=== PATIENT | male | born 1955 | race Caucasian/White ===

== ENCOUNTER → 2016-08-24 | Outpatient (CLI) | payer OTHER | LOC: MRI 09:12 → CAT 09:12 → MRI 10:11 | DX: R91.1 Solitary pulmonary nodule (principal) ==

== ENCOUNTER → 2017-01-29 | Outpatient (CLI) | payer OTHER | LOC: CAT 11:20 | DX: I25.10 Atherosclerotic heart disease of native coronary artery without angina pectoris (principal); R91.1 Solitary pulmonary nodule; R91.8 Other nonspecific abnormal finding of lung field ==

== ENCOUNTER → 2017-08-23 | Outpatient (CLI) | payer OTHER | LOC: CAT 08-16 14:49 | DX: R91.1 Solitary pulmonary nodule (principal) ==